=== PATIENT | male | born 1965 | race Caucasian/White ===

== ENCOUNTER 2020-02-05 10:17 | Emergency (ER) | payer OTHER, SELFPAY ==
[2020-02-05 10:29] VITALS: BP 130/93; PULSE 64; RESP 16; TEMP 36; O2SAT 100
--- NOTE | 2020-02-05 11:14 | ED.EXTPRO ---
HPI - Extremity Problem General Chief complaint: Extremity Problem,Nontraumatic Stated complaint: right leg pain Source: patient and RN notes reviewed Mode of arrival: ambulatory History of Present Illness HPI Narrative: This is a 54-year-old white male who presented to our urgent care today with complaints of right lower extremity pain and swelling. According to patient approximately 1 week ago he started experiencing a pain and swelling in his right lower extremity. Patient did admit that on December 27 he had a stent recently placed. During this assessment I did see swelling in his paredes and left lower extremity. Patient does have pain to his right lower extremity when his foot is dorsiflexed. Patient is being transported to [facility] he does refuse EMS transportation and Dr. Lieberman is excepting physician Related Data Home Medications Medication Instructions Recorded Confirmed amlodipine 5 mg PO DAILY 02/05/20 02/05/20 aspirin [Adult Aspirin EC Low 81 mg PO DAILY 02/05/20 02/05/20 Strength] clopidogrel 75 mg PO DAILY 02/05/20 02/05/20 olmesartan-hydrochlorothiazide 1 tablet PO DAILY 02/05/20 02/05/20 [Benicar HCT] simvastatin 20 mg PO DAILY 02/05/20 02/05/20 tramadol 50 mg PO DAILY 02/05/20 02/05/20 Allergies Allergy/AdvReac Type Severity Reaction Status Date / Time No Known Allergies Allergy Unverified 06/13/18 08:31 Review of Systems Review of Systems: All systems reviewed & are unremarkable except as noted in HPI and below (10 point system review) PMFSH Social History Social History Gender identity (if verbalized by the patient): Male Exam Narrative: Exam Narrative: GENERAL: This is a well-nourished, well-developed patient, in no apparent distress. HEAD: normocephalic, atraumatic. EYES: PERRL. Sclera clear/white. Vision is grossly intact. EARS: External ears normal, auditory canals clear and without drainage, TMs normal without perforation. Hearing grossly intact. NOSE: External nose normal with no obvious nasal discharge, nares without redness, no rhinorrhea. THROAT: Mucous membranes moist, posterior pharynx clear. NECK: Neck supple, non-tender without lymphadenopathy, masses or thyromegaly. CARDIOVASCULAR: Regular rate and rhythm without murmurs, gallops, or rubs. RESPIRATORY: Clear to auscultation. Breath sounds equal bilaterally. No wheezes, rales, or rhonchi. GASTROINTESTINAL: Abdomen soft, non-tender, nondistended. Bowel sounds are active. No hepato-splenomegaly, or palpable masses. No guarding. SKIN: warm, intact with no suspicious lesions or rash, good texture and turgor. NEURO: awake, alert, and oriented to person, place and time. There were no obvious focal neurologic abnormalities. Steady gait EXTREMITIES: Normal range of motion. Right lower extremity edema. Positive calf tenderness. Positive Homans sign right lower extremity. BACK: Nontender without deformity or crepitance. No flank tenderness. Course Course Emergency Course: Patient will be transported to [facility] accepting physician patient refused transportation via EMS Vital Signs Vital signs: Vital Signs Temperature 96.8 F L 02/05/20 10:29 Pulse Rate 64 02/05/20 10:29 Respiratory Rate 16 02/05/20 10:29 Blood Pressure 130/93 H 02/05/20 10:29 Pulse Oximetry 100 02/05/20 10:29 Temperature 96.8 F L 02/05/20 10:29 Pulse Rate 64 02/05/20 10:29 Respiratory Rate 16 02/05/20 10:29 Blood Pressure 130/93 H 02/05/20 10:29 Pulse Oximetry 100 02/05/20 10:29 MDM - Extremity (Nontraumatic) Differential Diagnosis Differential diagnosis: Likely deep vein thrombosis of lower extremity Discharge Plan Discharge Clinical Impression: Lower extremity edema Patient Disposition: Acute Care Hospital Condition: Stable Prescriptions: No Action amlodipine 5 mg tablet 5 mg PO DAILY RF: 0 clopidogrel 75 mg tablet
== END 2020-02-05 11:14 | disposition short-term general hospital (02) ==
PROVIDERS: Emergency Provider Nurse Practitioner
DX: R60.0 Localized edema (principal); Z79.82 Long term (current) use of aspirin
CPT/HCPCS: 99212; G0463

== ENCOUNTER 2020-02-05 11:33 | Emergency (ER) | payer OTHER, SELFPAY ==
--- NOTE | ~2020-02-05 | US_ITS ---
EXAMINATION: US venous doppler LE RT EXAM DATE: 02/05/2020 13:02 INDICATION: Right leg pain. Lymph node in the groin. TECHNIQUE: Multiple grayscale, color flow and Doppler images of the right lower extremity deep venous system were obtained and reviewed. There is no prior study for comparison. FINDINGS: The right common femoral, femoral and profunda veins demonstrate normal color flow, respira tory variation, augmentation and compressibility. Compressibility, color flow confirmed within the r ight popliteal, posterior tibial, peroneal, and greater saphenous veins. Right inguinal lymph node w ith large fatty hilum, consistent with reactive etiology. IMPRESSION: 1. No right lower extremity deep venous thrombosis. Reviewed, dictated and finalized at location B. TOP ANALYST
--- NOTE | ~2020-02-05 | XR_ITS ---
EXAMINATION: XR tibia fibula RT 2V EXAM DATE: 02/05/2020 12:57 INDICATION: No known recent injury provided at this time. Pain of the right lower leg. TECHNIQUE: Right tibia/fibula frontal and lateral projections obtained and reviewed. There is no shantelle or study for comparison. FINDINGS: Right tibial and fibular shafts unremarkable. There are no acute fractures or dislocations identified. There is no subcutaneous gas. The soft tissue is unremarkable. There are no radiopaq ue foreign bodies. IMPRESSION: 1. Unremarkable XR tibia fibula RT 2V exam. Reviewed, dictated and finalized at location B. OR MANAGER [facility]
[2020-02-05 11:41] VITALS: BP 141/82; PULSE 60; RESP 18; TEMP 35.8; O2SAT 99
--- NOTE | 2020-02-05 12:38 | ED.GENADULT ---
HPI - General Adult General Chief complaint: Extremity Injury, Lower Stated complaint: right lower leg pain Time Seen by Provider: 02/05/20 12:12 Source: patient Mode of arrival: ambulatory History of Present Illness HPI narrative: Patient is a 54 y/o male complaining of right lower pain starting 1 week ago. He describes his pain as a bruise or a broken bone. He states that raising his right toes aggravates his pain. His pain is mild at rest but get more severe with movement and raising his toes. There is no pain radiation. He has no chest pain or SOB. He was seen at urgent care earlier today and sent here for evaluation of possible DVT. Related Data Home Medications Medication Instructions Recorded Confirmed amlodipine 5 mg PO DAILY 02/05/20 02/05/20 aspirin [Adult Aspirin EC Low 81 mg PO DAILY 02/05/20 02/05/20 Strength] clopidogrel 75 mg PO DAILY 02/05/20 02/05/20 olmesartan-hydrochlorothiazide 1 tablet PO DAILY 02/05/20 02/05/20 [Benicar HCT] simvastatin 20 mg PO DAILY 02/05/20 02/05/20 tramadol 50 mg PO DAILY 02/05/20 02/05/20 Allergies Allergy/AdvReac Type Severity Reaction Status Date / Time No Known Allergies Allergy Verified 02/05/20 11:45 Review of Systems Constitutional: Constitutional: Denies chills, Denies fever(s), Denies headache(s) and Denies weakness Eyes: Eyes: Denies blurry vision ENT: Denies headache(s) and Denies neck pain Cardiovascular: Cardiovascular: Denies chest pain and Denies dyspnea Respiratory: Respiratory: Denies cough and Denies dyspnea Gastrointestinal: Gastrointestinal: Denies abdominal pain, Denies diarrhea, Denies nausea and Denies vomiting Genitourinary: Genitourinary: Denies hematuria and Denies dysuria Musculoskeletal: Musculoskeletal: Reports as per HPI, Denies back pain, Denies neck pain and Reports other (right leg pain) Neurologic: Denies headache(s) and Denies weakness [facility] Social History Social History Gender identity (if verbalized by the patient): Male Exam Const: General: no acute distress and well developed Orientation/consciousness: oriented to person, oriented to place, oriented to time and patient oriented x3 HENMT: Head: normocephalic Ears: external ears normal General nose exam: Normal external nose present Eyes: General: appearance normal, both eyes and all related structures Conjunctivae: conjunctivae normal Neck: Neck: normal visual inspection and full ROM Chest: Chest palpation & inspection: normal inspection of the chest and no tenderness Resp: Effort & Inspection: normal respiratory effort Auscultation: clear to auscultation bilaterally Cardio: Rate: regular rate Rhythm: regular rhythm GI: GI Palp: No abdominal tenderness and Yes Soft to palpation Skin: General skin exam: normal color and turgor normal Neuro: General: oriented to person, oriented to place, oriented to time and patient oriented x3 Cognition (Neuro): normal cognition Extrem: General: normal to inspection, full ROM and no pedal edema Psych: Appearance: grossly normal Mental Status: mental status grossly normal Affect: normal affect Course Vital Signs Vital signs: Vital Signs Temperature 35.8 C L 02/05/20 11:41 Pulse Rate 60 02/05/20 11:41 Respiratory Rate 18 02/05/20 11:41 Blood Pressure 141/82 H 02/05/20 11:41 Pulse Oximetry 99 02/05/20 11:41 Temperature 35.8 C L 02/05/20 11:41 Pulse Rate 60 02/05/20 11:41 Respiratory Rate 18 02/05/20 11:41 Blood Pressure 141/82 H 02/05/20 11:41 Pulse Oximetry 99 02/05/20 11:41 Medical Decision Making Vital Signs Vital Signs: Vital Signs Temperature 35.8 C L 02/05/20 11:41 Pulse Rate 60 02/05/20 11:41 Respiratory Rate 18 02/05/20 11:41 Blood Pressure 141/82 H 02/05/20 11:41 Pulse Oximetry 99 02/05/20 11:41 Temperature 35.8 C L 02/05/20 11:41 Pulse Rate 60 02/05/20 11:41 Respiratory Rate
[2020-02-05 14:03] VITALS: BP 150/75; PULSE 82; O2SAT 98
== END 2020-02-05 14:03 | disposition home or self-care (01) ==
PROVIDERS: Emergency Provider Emergency Medicine
DX: M79.661 Pain in right lower leg (principal); Z79.82 Long term (current) use of aspirin
CPT/HCPCS: 73590; 93971; 99284

== ENCOUNTER 2020-04-10 09:31 | Emergency (ER) | payer OTHER, SELFPAY ==
[2020-04-10 09:51] VITALS: BP 138/95; PULSE 65; RESP 16; TEMP 36; O2SAT 99
--- NOTE | 2020-04-10 10:38 | ED.HA ---
HPI - Headache General Chief Complaint: Upper Respiratory Infection Stated Complaint: sinus infection Source: patient and RN notes reviewed Limitations: no limitations History of Present Illness HPI Narrative: The patient, non-smoker/nondrinker,, presents with muscle and head aches. Patient states he has 2-day, gradual onset of left orbital and vertex scalp headache. He attributes the onset to recent cleaning in a very wet and dirty area. This is associated with mild bilateral shoulder and neck pain; he had prior headaches in a similar distribution but this is stronger. Symptoms are mild somewhat worse palpating his scalp, and when leaning over. No fever, cough, sneezing/wheezing, loss of taste/smell, earache, CP, speech/visual changes -but he does have some mild photophobia to bright sunlight. No med noncompliance [with Norvasc-for HTN, Plavix-for ASHD with stents], numbness/weakness, gait changes ,sig nasal congestion-but he does have metallic taste in his mouth and nasal discharge while showering. Patient advised go to hospital for higher level testing if not improved Related Data Home Medications Medication Instructions Recorded Confirmed amlodipine [Norvasc] 5 mg PO DAILY 04/10/20 04/10/20 aspirin [Adult Aspirin EC Low 81 mg PO DAILY 04/10/20 04/10/20 Strength] clopidogrel [Plavix] 75 mg PO DAILY 04/10/20 04/10/20 simvastatin [Zocor] 20 mg PO DAILY 04/10/20 04/10/20 tramadol [Ultram] 150 mg PO DAILY 04/10/20 04/10/20 Allergies Allergy/AdvReac Type Severity Reaction Status Date / Time No Known Allergies Allergy Verified 04/10/20 09:46 Review of Systems Review of Systems: Narrative: I general/Constitutional: No weight loss,fever Eyes: N0: Redness,discharge Ears/Nose/Throat: No: Epistaxis,ear discharge Respiratory: Denies: Hemoptysis Gastrointestinal: No Vomiting, Bleeding-rectal Skin: No Lumps, eruption Neurologic: No Focal Weakness,Sz Hematologic: Denies: Petechiae/Purpura Psychiatric: No: Suicida ideationl All Other Systems: Reviewed and Negative [facility] Social History Social History Gender identity (if verbalized by the patient): Male Comments At time of signature, agree with nursing past medical, surgical, social and family history. There is no relevant family history pertinent to the presenting complaint Exam Narrative: Exam Narrative: General Appearance: Well appearing, No distress EYE: PERRLA, Conjunctiva clear, EOMI Neurological: A&O x3, CN II-X intact, reflexes symmetric Ears: External ear normal Nose: Normal nose Mouth/Throat: Normal appearing, Normal lips Neck: Supple, SROM, FAROM Respiratory: Airway patent, No respiratory distress Musculoskeletal: Full strength & ROM Skin: Warm, Dry Psychiatric: Normal mood, Normal affect Course Vital Signs Vital signs: Vital Signs Temperature 96.8 F L 04/10/20 09:51 Pulse Rate 65 04/10/20 09:51 Respiratory Rate 16 04/10/20 09:51 Blood Pressure 138/95 H 04/10/20 09:51 Pulse Oximetry 99 04/10/20 09:51 Temperature 96.8 F L 04/10/20 09:51 Pulse Rate 65 04/10/20 09:51 Respiratory Rate 16 04/10/20 09:51 Blood Pressure 138/95 H 04/10/20 09:51 Pulse Oximetry 99 04/10/20 09:51 Discharge Plan Discharge Clinical Impression: Headache disorder Patient Disposition: Home, Self-Care Condition: Stable Instructions: Antibiotic Form, Sinusitis (ED) Additional Instructions: Advised to go to higher-level care facility to higher level testing if not improved , because for early diagnosis of serious problems , clear specific symptoms do not develope until later Prescriptions: New azelastine 137 mcg (0.1 %) aerosol,spray 137 mcg NASAL Q12H Qty: 30 RF: 0 amoxicillin-pot clavulanate [Augmentin] 500-125 mg tablet 1 tablet PO Q12H Qty: 14 RF: 0 tramadol 50 mg tablet 50 mg PO TID PRN (Reason: pain) Qty: 15 RF: 1 butalbital-acetami
== END 2020-04-10 10:23 | disposition home or self-care (01) ==
PROVIDERS: Emergency Provider Emergency Medicine
DX: R51.9 Headache, unspecified (principal); I25.10 Atherosclerotic heart disease of native coronary artery without angina pectoris; Z95.5 Presence of coronary angioplasty implant and graft; I10 Essential (primary) hypertension; K21.9 Gastro-esophageal reflux disease without esophagitis
CPT/HCPCS: 99213; G0463

== ENCOUNTER → 2020-04-11 06:57 | Outpatient (CLI) | payer OTHER, SELFPAY ==
[2020-04-11 23:26] LABS: SARS-CoV-2 RNA PCR Negative
== END ==
PROVIDERS: Visit Provider Emergency Medicine
DX: Z20.822 Contact with and (suspected) exposure to COVID-19 (principal); M79.10 Myalgia, unspecified site
CPT/HCPCS: C9803; U0003; U0005